=== PATIENT | female | born 1960 | race Caucasian/White ===

== ENCOUNTER 2016-06-22 12:59 | Emergency (ER) ==
[2016-06-22 13:13] VITALS: TEMP 97.7; BMI 28.3
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
[2016-06-22 14:32] VITALS: BP 187/94
== END 2016-06-22 14:41 | disposition home or self-care (01) ==
LOC: ED 12:59
DX: F34.1 Dysthymic disorder (principal); F41.9 Anxiety disorder, unspecified; I10 Essential (primary) hypertension; M79.605 Pain in left leg; F17.210 Nicotine dependence, cigarettes, uncomplicated; Z79.899 Other long term (current) drug therapy
CPT/HCPCS: 99283

== ENCOUNTER 2016-12-14 08:44 | Outpatient (CLI) ==
[2016-12-14 09:03] LABS: BASOPHILS # (AUTO) 0.1 K/uL (0-0.2); BASOPHILS % (AUTO) 0.5 % (0.0-3.0); EOSINOPHILS # (AUTO) 0.1 K/ul (0.0-0.7); EOSINOPHILS % (AUTO) 1.2 % (0.0-7.0); HEMATOCRIT 40.9 % (37.0-47.0); HEMOGLOBIN 13.7 g/dl (12.0-16.0); IMMATURE GRANULOCYTE % (AUTO) 0.3 % (0.0-5.0); LYMPHOCYTES # (AUTO) 2.2 K/uL (0.60-3.4); LYMPHOCYTES % (AUTO) 23.4 (10.0-50.0); MEAN CORPUSCULAR HEMOGLOBIN 29.8 pg (27.0-31.0); MEAN CORPUSCULAR HGB CONC 33.5 (31.8-35.4); MEAN CORPUSCULAR VOLUME 88.9 fl (81.0-99.0); MONOCYTES # (AUTO) 0.6 K/uL (0.4-2.0); NEUTROPHILS # (AUTO) 6.4 K/ul (2.0-6.9); NEUTROPHILS % (AUTO) 68.6; PLATELET COUNT 316 10^3/uL (140-440); WHITE BLOOD COUNT 9.36 K/ul (4.6-10.2)
[2016-12-14 09:06] LABS: BILIRUBIN,URINE Negative (NEGATIVE); KETONES,URINE Negative (NEGATIVE); LEUKOCYTE ESTERASE ,URINE Negative (NEGATIVE); NITRITE,URINE Negative (NEGATIVE); PROTEIN,URINE Negative (NEGATIVE); URINE, BLOOD 1+ (NEGATIVE)
[2016-12-14 09:08] LABS: ADD URINE MICROSCOPIC YES
[2016-12-14 09:19] LABS: COCAIN SCREEN,URINE NEGATIVE (NEGATIVE)
[2016-12-14 09:44] LABS: ALBUMIN 3.6 g/dL (3.4-5.0); BILIRUBIN,TOTAL 0.38 mg/dL (0.00-1.20); BUN/CREATININE RATIO 13.84; CALCIUM 9.7 mg/dL (8.2-10.2); CREATININE 0.65 mg/dL (0.60-1.30); TOTAL PROTEIN 7.2 g/dL (6.4-8.2)
== END 2016-12-14 08:45 | disposition home or self-care (01) ==
LOC: LAB 08:44
PROVIDERS: ATTEND Family Medicine
DX: E78.5 Hyperlipidemia, unspecified (principal); I10 Essential (primary) hypertension; E66.9 Obesity, unspecified; J44.9 Chronic obstructive pulmonary disease, unspecified; Z91.14 Patient's other noncompliance with medication regimen
CPT/HCPCS: 36415; 80053; 80306; 81001; 84439; 84443; 85025

== ENCOUNTER 2017-05-31 11:46 | Emergency (ER) ==
[2017-05-31 12:04] VITALS: BP 113/73; TEMP 98.7; BMI 29.3
--- NOTE | 2017-05-31 12:07 | ED.PDOC ---
General ED Provider: Dr. VIKY RAPP Chief Complaint: Tooth Problem Stated Complaint: Right lower teeth pain and lower jaw - neck swelling. Time Seen by Physician: 12:05 Mode of Arrival: Walk-In Information Source: Patient Exam Limitations: No limitations Primary Care Provider: TRENA OROZCO Nursing and Triage Documentation Reviewed and Agree: Yes Reviewed sepsis parameters & appropriate labs ordered?: Yes System Inflammatory Response Syndrome: Not Applicable Sepsis Protocol: For patient's 13 years and over: Temp is 96.8 and below OR 101 and greater Pulse >90 BPM Resp >20/minute Acutely Altered Mental Status Are patient's symptoms suggestive of a new infection, such as: -Pneumonia -Skin, Soft Tissue -Endocarditis -UTI -Bone, Joint Infection -Implantable Device -Acute Abdominal Infection -Wound Infection -Meningitis -Blood Stream Catheter Infection -Unknown System Inflammatory Response Syndrome: Not Applicable Review of Systems - Review Of Systems Constitutional: Reports: No symptoms Ears, Nose, Mouth, Throat: Reports: Mouth pain (Lower right dental) All Other Systems: Reviewed and Negative Past Medical History - Past Medical History Previously Healthy: Yes Endocrine: Reports: None Cardiovascular: Reports: Hypertension Respiratory: Reports: COPD Hematological: Reports: None Gastrointestinal: Reports: None Genitourinary: Reports: None Neuro/Psych: Reports: None, Anxiety, Depression Musculoskeletal: Reports: None Cancer: Reports: None Last Menstrual Period: na Other Pertinent Past Medical History: SMOKER - Surgical History General Surgical History: Reports: Hysterectomy, - Family History Family History: Reports: None - Social History Smoking Status: Current some day smoker Hx Substance Use: No Alcohol Screening: None - Immunizations Tetanus Shot up to Date: Yes Physical Exam - Physical Exam Appearance: Well-appearing Pain Distress: Mild Eyes: PASTORA, EOMI ENT: Oropharynx normal (Gingival edema lower right) Neck: Supple Respiratory: Airway patent Skin: Warm, Dry, Normal color Neurological: Alert, Oriented Psychiatric: Affect appropriate, Mood appropriate Critical Care Note - Critical Care Note Total Time (mins): 7 Course - Course Vital Signs: Temp Pulse Resp BP Pulse Ox 05/31/17 11:47 98.7 F 91 H 20 113/73 91 L Departure - Departure Time of Disposition: 12:14 Disposition: HOME SELF-CARE Discharge Problem: Dental caries Instructions: Dental Abscess (ED) Condition: Good Pt referred to PMD for follow-up: Yes IPMP verified?: No (No narcotic prescribed) Additional Instructions: Take abtibiotic (Clindamycin) and pain medication (Tramadol) as prescribed. Must see a dentist for definitive treatment. Prescriptions: Tramadol HCl [Ultram] 50 mg PO Q6HR #14 tablet Clindamycin HCl 300 mg PO TID #21 capsule Allergies/Adverse Reactions: Allergies ibuprofen Adverse Reaction (Verified 05/31/17 11:55) Nausea itching Home Medications: Ambulatory Orders Amlodipine Besylate [Norvasc] 10 mg PO DAILY 05/31/17 Clindamycin HCl 300 mg PO TID #21 capsule 05/31/17 Gabapentin 300 mg PO BID 05/31/17 Paroxetine HCl [Paxil] 20 mg PO DAILY 05/31/17 Risperidone [Risperdal] 0.5 mg pe PO BEDTIME 05/31/17 Tramadol HCl [Ultram] 50 mg PO Q6HR #14 tablet 05/31/17 Disposition Discussed With: Patient
== END 2017-05-31 12:36 | disposition home or self-care (01) ==
LOC: ED 11:46
DX: K02.7 Dental root caries (principal); F17.210 Nicotine dependence, cigarettes, uncomplicated
CPT/HCPCS: 99282

== ENCOUNTER 2017-06-17 09:52 | Outpatient (CLI) ==
--- NOTE | 2017-06-17 11:05 | DI ---
EXAM: Lumbar spine radiographs. HISTORY: Low back pain, radiculopathy. COMPARISON: 01/21/2009. TECHNIQUE: Three views of the lumbar spine. FINDINGS: There is mild left convex curvature centered in the mid lumbar spine. Alignment is normal . Vertebral body and intervertebral disc heights are maintained. Mild to moderate multilevel endpla te osteophyte formation and facet arthropathy noted. No fracture or subluxation detected. Sacral ar johann lines are intact. Atherosclerotic calcifications are present. Small calcifications project ov er both renal silhouettes. IMPRESSION: 1. Mild to moderate degenerative changes. 2. Bilateral nephrolithiasis.
== END 2017-06-17 09:53 | disposition home or self-care (01) ==
LOC: RAD 09:52
PROVIDERS: ATTEND Family Medicine
DX: M54.5 Low back pain (principal); M54.16 Radiculopathy, lumbar region

== ENCOUNTER 2017-06-27 08:54 | Outpatient (CLI) | END 2017-06-27 08:55 | disposition home or self-care (01) | LOC: RAD 08:54 | PROVIDERS: ATTEND Family Medicine | DX: J44.9 Chronic obstructive pulmonary disease, unspecified (principal); I10 Essential (primary) hypertension; F31.9 Bipolar disorder, unspecified; Z00.00 Encounter for general adult medical examination without abnormal findings; Z79.899 Other long term (current) drug therapy; N63.10 Unspecified lump in the right breast, unspecified quadrant | CPT/HCPCS: 36415; 80053; 80061; 80306; 81001; 84439; 84443; 85025 ==

== ENCOUNTER 2017-06-30 12:49 | Outpatient (CLI) ==
--- NOTE | 2017-06-30 13:45 | DI ---
EXAM: CHEST FRONTAL AND LATERAL VIEWS HISTORY: Chronic obstructive pulmonary disease. COMPARISON: 12/04/2015 FINDINGS: Normal heart size. Mild atherosclerotic disease is suggested. No acute infiltrates are se en. No vascular congestion. There is no consolidation, visible pleural fluid or pneumothorax. Bones reveal no acute fracture. Mild to moderate scoliosis. IMPRESSION: No noticeable change since prior study. No acute cardiopulmonary process.
== END 2017-06-30 12:50 | disposition home or self-care (01) ==
LOC: RAD 12:49
PROVIDERS: ATTEND Family Medicine
DX: R10.11 Right upper quadrant pain (principal); R74.8 Abnormal levels of other serum enzymes; D72.829 Elevated white blood cell count, unspecified; J44.9 Chronic obstructive pulmonary disease, unspecified; N20.0 Calculus of kidney; Z86.59 Personal history of other mental and behavioral disorders
CPT/HCPCS: 36415; 85025

== ENCOUNTER 2017-09-13 09:06 | Outpatient (CLI) ==
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
--- NOTE | 2017-09-13 10:55 | DI ---
EXAM: Two views of the right hip. History: Right hip pain and trauma. Findings: No acute fracture or dislocation. No abnormal calcifications or radiopaque foreign bodies . The right hip joint space is preserved. Mild enthesiopathy of the right greater trochanter. Impression: No acute osseous abnormality
== END 2017-09-13 09:07 | disposition home or self-care (01) ==
LOC: RAD 09:06
PROVIDERS: ATTEND Family Medicine
DX: E78.5 Hyperlipidemia, unspecified (principal); I10 Essential (primary) hypertension; D72.829 Elevated white blood cell count, unspecified; M25.50 Pain in unspecified joint; R74.8 Abnormal levels of other serum enzymes; M79.642 Pain in left hand; M79.641 Pain in right hand; M25.552 Pain in left hip; M25.551 Pain in right hip; Z86.59 Personal history of other mental and behavioral disorders; Z87.442 Personal history of urinary calculi
CPT/HCPCS: 36415; 80053; 80061; 81001; 82977; 85025; 86430